=== PATIENT | male | born 1965 | race Two or more races ===

== ENCOUNTER → 2020-07-08 10:47 | Outpatient (BNVA) | payer MEDICARE, MEDICAID, SELFPAY | PROVIDERS: PCP Internal Medicine; Referring Provider Internal Medicine; Visit Provider Anesthesiology | DX: M54.16 Radiculopathy, lumbar region (principal); M47.816 Spondylosis without myelopathy or radiculopathy, lumbar region; M51.36 Other intervertebral disc degeneration, lumbar region; Z98.1 Arthrodesis status | CPT/HCPCS: 99213 ==

== ENCOUNTER 2020-07-22 17:51 | Outpatient (REF) | payer MEDICARE, MEDICAID, SELFPAY ==
--- NOTE | 2020-07-22 18:15 | MR_ITS ---
EXAMINATION: MR LUMBAR SPINE WITHOUT CONTRAST CLINICAL INFORMATION: Lower back pain. Sciatica. COMPARISON: Lumbar spine MRI dated 04/10/2020. TECHNIQUE: MRI of the lumbar spine was obtained using routine sequences without contrast. FINDINGS: VERTEBRAL BODIES AND PARASPINAL STRUCTURES: Normal vertebral body alignment. The lumbar lordosis is maintained. No acute fracture or subluxation. No loss of vertebral body height. Mild loss of intervertebral disc height with associated disc desiccation at L2-L3 and L5-S1, similar when compared to the prior examination. Minimal degenerative endplate changes with tiny endplate osteophytes throughout the lumbar spine, unchanged. Stable vertebral body hemangioma within L2. No additional abnormal marrow signal. The visualized paraspinal soft tissues are unremarkable. CONUS MEDULLARIS AND CAUDA EQUINA: Normal, terminating at the level of the L1-L2 intervertebral disc. SPINAL LEVELS: T12-L1: No significant disc bulge. No central canal or neural foraminal stenosis. L1-L2: No significant disc bulge. No central canal or neural foraminal stenosis. L2-L3: Mild broad-based disc bulge with bilateral facet arthropathy and thickening of the ligamentum flavum causing mild bilateral neural foraminal stenosis, similar when compared to the prior examination. L3-L4: No significant disc bulge. Bilateral facet arthropathy. Mild bilateral neural foraminal stenosis, unchanged. L4-L5: Redemonstration of a broad-based disc bulge which abuts the bilateral traversing L5 nerve roots within the lateral recesses. Superimposed left subarticular disc protrusion, similar when compared to the prior examination. This is again noted to abut the exiting left L4 nerve root within the neural foramen. Bilateral facet arthropathy with moderate bilateral neural foraminal stenosis. Overall, findings are similar when compared to the prior examination. L5-S1: Broad-based disc bulge, slightly asymmetric to the right with bilateral facet arthropathy and mild bilateral neural foraminal stenosis, unchanged. MR/MR lumbar spine wo con IMPRESSION: 1. L4-L5 broad-based disc bulge with a superimposed left subarticular disc protrusion which abuts the exiting left L4 nerve root in the neural foramen. Bilateral facet arthropathy with moderate bilateral neural foraminal stenosis. Findings are similar when compared to the prior examination. 2. L5-S1 broad-based disc bulge, slightly asymmetric to the right with bilateral facet arthropathy and mild bilateral neural foraminal stenosis, unchanged. 3. L2-L3 mild broad-based disc bulge with bilateral facet arthropathy and thickening of the ligamentum flavum causing mild bilateral neural foraminal stenosis, similar when compared to the prior examination. 4. L3-L4 bilateral facet arthropathy with mild bilateral neural foraminal stenosis, unchanged.
== END 2020-07-22 17:52 | disposition home or self-care (01) ==
LOC: HO.MRI 17:51
PROVIDERS: PCP Internal Medicine; Visit Provider Internal Medicine
DX: M54.42 Lumbago with sciatica, left side (principal)
CPT/HCPCS: 72148

== ENCOUNTER → 2021-04-23 14:09 | Outpatient (BNVA) | payer MEDICARE, MEDICAID, SELFPAY | PROVIDERS: PCP Internal Medicine; Visit Provider Anesthesiology | DX: M54.16 Radiculopathy, lumbar region (principal); M47.816 Spondylosis without myelopathy or radiculopathy, lumbar region; M51.36 Other intervertebral disc degeneration, lumbar region; Z98.1 Arthrodesis status | CPT/HCPCS: 99212 ==